=== PATIENT | female | born 1980 | race Caucasian/White ===

== ENCOUNTER 2017-02-01 22:07 | Emergency (ER) | payer OTHER ==
[~2017-02-01] VITALS: Ht 167.6 cm; Wt 73.2 kg
[~2017-02-01 22:07] MED LIST: DEPAKOTE125 MG PO; Halfprin PO; MAXALT10 MG PO; PriLOSEC PO; ZOLOFT100 M1 PO
[2017-02-01 22:13] VITALS: BP 142/50
== END 2017-02-01 23:00 | disposition left against medical advice (07) ==
LOC: EME 22:07
DX: G43.909 Migraine, unspecified, not intractable, without status migrainosus (principal); Z53.21 Procedure and treatment not carried out due to patient leaving prior to being seen by health care provider

== ENCOUNTER 2017-03-27 08:39 | Day surgery (SDC) | payer OTHER ==
[~2017-03-27] VITALS: Ht 167.6 cm; Wt 74.3 kg
[~2017-03-27 08:39] MED LIST changes: +JOLESSA1 EACH PO; +LEVO-T112 MCG PO; +MULTI VITAMIN1 EACH PO; +XANAX0.5 MG PO; +ZOLOFT100 MG PO
[2017-03-27 09:13] VITALS: BP 109/68
[2017-03-27 16:45] VITALS: BP 117/58
[2017-03-27 19:42] VITALS: BP 112/62
[2017-03-27 23:10] VITALS: BP 89/49
[2017-03-28 03:35] VITALS: BP 100/53
[2017-03-28 07:10] VITALS: BP 98/57
[2017-03-28 07:15] VITALS: BP 107/55
[2017-03-28 07:30] LABS: EOSINOPHIL (%) 0.2 % (0-5); HEMATOCRIT 33.8 % (36.0-46.0); IMMATURE GRANULOCYTE (%) 0.5 % (0.0-0.7); IMMATURE GRANULOCYTE COUNT 0.1 K/uL; INSTRUMENT ABS NEUTROPHIL CT 10.1 K/uL; LYMPHOCYTE COUNT 1.9 K/uL (1.0-2.8); MCH 26.3 PG (29.0-34.0); MCV 82.2 FL (83-99); MEAN PLAT.VOLUME 9.3 uM^3 (9.5-12.4); MONOCYTE (%) 6.1 % (3-12); MONOCYTE COUNT 0.8 K/uL (0-0.8); NEUTROPHIL (%) 78.5 % (45-76); NEUTROPHIL COUNT 10.1 K/uL (1.8-6.4); PLATELET COUNT 344 K/uL (156-360); RBC DIS.WIDTH-CV 14.1 % (11.8-14.6); RBC DIS.WIDTH-SD 41.8 % (39-53); RED BLOOD COUNT 4.11 M/uL (3.80-5.20); WHITE BLOOD COUNT 12.8 K/uL (4.1-10.2)
[2017-03-28 08:01] LABS: ANION GAP 7 MEQ/L (2-14); CHLORIDE 107 MEQ/L (99-109); GFR ESTIMATE (CALCULATED) > 59 mL/min/; GLUCOSE 94 mg/dL (70-99); SAMPLE HEMOLYSIS CHECK 0; SAMPLE ICTERIC CHECK 0; SAMPLE LIPEMIA CHECK 0; SODIUM 141 MEQ/L (136-147); UREA NITROGEN (BUN) 8 mg/dL (9-23)
== END 2017-03-28 09:29 | disposition home or self-care (01) ==
LOC: SDC 08:39 → 2SOUTH 13:00 → 2EASTP 13:00 → 2SOUTH 13:00 → SDC 13:07 → EDSTATUS 13:07 → 2SOUTH 13:07 → SDC 15:30 → 2EASTP 16:42
PROVIDERS: Obstetrics & Gynecology Gynecology
DX: N80.0 Endometriosis of uterus (principal); N92.1 Excessive and frequent menstruation with irregular cycle; N72 Inflammatory disease of cervix uteri; N94.6 Dysmenorrhea, unspecified; K66.0 Peritoneal adhesions (postprocedural) (postinfection); E61.1 Iron deficiency; F41.8 Other specified anxiety disorders; E89.0 Postprocedural hypothyroidism; Z82.49 Family history of ischemic heart disease and other diseases of the circulatory system; Z83.511 Family history of glaucoma
CPT/HCPCS: 80048; 85025; 87086; 88307; G0378; J0131; J0690; J1100; J1170; J1644; J1885; J1940; J2250; J2405; J2710; J3010; J7120